=== PATIENT | female | born 1995 | race Caucasian/White ===

== ENCOUNTER 2018-03-15 16:43 | Day surgery (SDC) | payer BC ==
[2018-03-15 17:18] VITALS: BP 125/65; TEMP 98.9
[2018-03-15 17:32] VITALS: BMI 23.3
[2018-03-15 18:44] LABS: Amnisure Internal Control QC ACCEPTABLE (ACCEPTABLE); Amnisure Test No Membranes Rupture (No Rupture)
[2018-03-15 18:47] LABS: FFN Internal QC Analyzer PASS (PASS); FFN Internal QC Cassette PASS (PASS); Fetal Fibronectin Negative (Negative)
--- NOTE | 2018-03-15 18:52 | PDOC.LDHP ---
Labor and Delivery H&P Chief complaint: contractions HPI: 22 y/o at 33w1d, patient of Dr. El, presents with gush of fluid yesterday, cramping off and on today, and a bite on her arm. No VB or decreased FM. Woke up with the bite on her left forearm - 2 small puncture wounds about 1cm apart with small blisters around them and erythema surrounding it. She reports the area of erythema as increased today. Has not taken any medications. OB History Details: First SAB Past Medical History: Maternal congenital valve disorder Current medications: pre-honey vitamins Previous surgical history: none Allergies/Adverse Reactions: Allergies Allergy/AdvReac Type Severity Reaction Status Date / Time No Known Allergies Allergy Unverified 03/15/18 17:33 Social history: none - Physical Exam Vital signs reviewed and normal: yes General: NAD, resting Lungs: nonlabored breathing Abdomen: gravid Extremeties: no edema FHT: category 1 (130s, mod variability, + accels, no decels) Hankinson contractions every: irritability - Vaginal Exam cm dilated: 0 Effacement: 0% Station: -3 - OB Labs Additional Labs: FFN negative Amnisure negative - Assessment 22 y/o at 33w1d with no e/o SROM or PTL. status reassuring with reactive NST. - Plan -: Cleared obstetrically. Will d/c to the ED for evaluation of her bite.
== END 2018-03-15 19:35 | disposition home or self-care (01) ==
LOC: L&D/OP 16:43
PROVIDERS: ATTEND Obstetrics & Gynecology
DX: O47.03 False labor before 37 completed weeks of gestation, third trimester (principal); O9A.213 Injury, poisoning and certain other consequences of external causes complicating pregnancy, third trimester; S50.862A Insect bite (nonvenomous) of left forearm, initial encounter; Z3A.33 33 weeks gestation of pregnancy; Z79.899 Other long term (current) drug therapy
CPT/HCPCS: 82731; 84112; 87480; 87510; 87660; 99283

== ENCOUNTER 2018-03-15 19:41 | Emergency (ER) | payer BC | END 2018-03-15 20:57 | disposition home or self-care (01) | LOC: ERS 19:41 | DX: O99.713 Diseases of the skin and subcutaneous tissue complicating pregnancy, third trimester (principal); L03.114 Cellulitis of left upper limb; O99.513 Diseases of the respiratory system complicating pregnancy, third trimester; J45.909 Unspecified asthma, uncomplicated; Z3A.35 35 weeks gestation of pregnancy | CPT/HCPCS: 99283 ==

== ENCOUNTER 2018-03-17 01:28 | Day surgery (SDC) | payer BC ==
[2018-03-17 02:07] VITALS: BP 104/69; TEMP 99.5; BMI 23.4
--- NOTE | 2018-03-17 05:06 | PRG ---
OB ER ENCOUNTER DATE OF SERVICE: 03/17/2018 PRIMARY SERVICE ARCHITECT: Dr. Matteo El. CHIEF COMPLAINT: Near syncope. HISTORY OF PRESENT ILLNESS: The patient is a 22-year-old, , female with an intrauterine pregnan cy at 33 weeks and 5 days who is presenting to labor and delivery after experiencing a near syncopal episode. The patient reports that she was in bed and had gotten up with a feeling tingly and lighthe aded and like she wanted to pass out. She describes that this is the first time in the thi s has happened. Patient denies any syncope, but the symptoms had passed. She reports a history of a congenital valve disorder that she describes as mitral valve prolapse and sees a Dr. Ruiz. The pat cris reports that she had these episodes prior to the and had seen Dr. Ruiz about a year a nd a few months ago and was told to follow up in 1 year. The patient presented today just to evaluat e and make sure that she is otherwise okay. Patient's one-hour Glucola was 84 and talking to the fam leigh, the patient reports that she has have similar symptoms as tonight at times around associated wit h food. She has never checked her blood sugar when she felt tingly in her extremities and felt unwel l. PAST MEDICAL HISTORY: Congenital heart disorder, valve disorder. PAST SURGICAL HISTORY: Negative. ALLERGIES: No known drug allergies. CURRENT MEDICATIONS: vitamins. SOCIAL HISTORY: The patient reports occasional alcohol prior to the . Denies drug or alcoh ol use. OBSTETRIC LABORATORY DATA: Blood type is O positive, antibody screen is negative. She is rubella im mune, RPR is nonreactive. Hepatitis B surface antigen nonreactive, GC and chlamydia are negative. H IV is nonreactive and one-hour Glucola is 84. REVIEW OF SYSTEMS: The patient denies recent fever, fall, headache, chest pain, shortness of breath. The patient had some nausea. Denies diarrhea or constipation. Denies hip problems, knee problems, muscle weakness. Denies vaginal bleeding or leakage of fluid. The patient was seen yesterday for a spider bite, which is wrapped and which she is taking antibiotics. MEDICATIONS: Clindamycin 300 mg to be taken 3 times a day. PHYSICAL EXAMINATION: VITAL SIGNS: Blood pressure 100/60, heart rate of 82, respiratory rate of 18, temperature 99.5. GENERAL: She appears to be in no acute distress. She is alert and oriented, cooperative, and pleasa nt to interact with. HEENT: Head: Normocephalic, atraumatic. LUNGS: Clear to auscultation bilaterally. I do not appreciate any rubs or murmurs, clicks. HEART: Regular rate and rhythm. ABDOMEN: Soft and gravid. EXTREMITIES: Nontender, nonedematous. She does have a bandage over her left arm, which I did not re move, but she does not seem to have any erythema or rash visible. GENITOURINARY: Has been deferred. heart tracing shows a fetus with a baseline in the 130s with moderate long-term variability, po sitive 15 x 15 accelerations, and no decelerations. Tocometer shows some irritability. Blood sugar was collected and found to be in the mid 80s. ASSESSMENT AND PLAN: The patient is a 22-year-old female who describes a near syncopal episode after being awoken from her sleep, feeling tingling in her extremities. The patient is due to see her adam or asian studies professor, Dr. Ruiz which we have encouraged for her to call in the morning. Patient does dri ve an hour and a half two way 3 times a week to school, not having had a clear picture to her cardiac condition and reported history of syncopal episodes and new onset symptoms with this . I h ave encouraged that the patient made contact Dr. Ruiz before resuming her normal activities, i.e., d riving to and from school. Symptoms are also could be occurring from low blood sugar. Blood sugar t bridget is within normal limits, but on the lower side. She may benefit from a glucometer to check her blood sugars next time she has these symptoms to see if they at all associated to a low blood sugar. The patient is overall feeling better as her symptoms spontaneously resolved at home and is comforta ble discharging to home. She has been asked to follow up with her primary OB, Dr. El tomorrow an d been asked to call her asian studies professor, Dr. Ruiz tomorrow to make an appointment for followup.
== END 2018-03-17 03:55 | disposition home or self-care (01) ==
LOC: L&D/OP 01:28
PROVIDERS: ATTEND Obstetrics & Gynecology
DX: O99.89 Other specified diseases and conditions complicating pregnancy, childbirth and the puerperium (principal); R55 Syncope and collapse; Z3A.33 33 weeks gestation of pregnancy
CPT/HCPCS: 36416; 59025; 99282